=== PATIENT | female | born 1955 | race Native Hawaiian/Other Pacific Islander ===

== ENCOUNTER 2017-02-03 15:23 | Emergency (ER) | payer OTHER ==
[~2017-02-03] VITALS: Ht 157.5 cm; Wt 74.8 kg
[~2017-02-03 15:23] MED LIST: ACET5TAB36 PO; ADVAIR DISK2 IN; ALPR0.5T24 PO; ALTOPREV60 MG PO; BUDE1AER5 INH; CITALOPRAM20 MG OR; DALIRESP500 MC1 PO; FLUTICASONE50 MCG; FURO20TA67 PO; HYDR10TA47A PO; MONT10TA PO; ONDA4TAB3 PO; PHENTERMINE37.5 M1 PO; PROVENTIL IN; RANITIDINE150 M1 OR; SPIRIVA IN; ZANTAC 75 PO; ZOLPIDEM10 MG OR
[2017-02-03 16:10] VITALS: BP 129/85; TEMP 98.1
== END 2017-02-03 17:11 | disposition home or self-care (01) ==
LOC: ED 15:23
DX: M62.830 Muscle spasm of back (principal)
CPT/HCPCS: 99281

== ENCOUNTER 2017-04-27 14:32 | Outpatient (CLI) | payer OTHER | END 2017-04-27 15:35 | disposition home or self-care (01) | LOC: RAD 14:32 | DX: J44.1 Chronic obstructive pulmonary disease with (acute) exacerbation (principal) ==

== ENCOUNTER 2017-12-16 10:52 | Outpatient (CLI) | payer OTHER | END 2017-12-16 20:56 | disposition home or self-care (01) | LOC: RESP 10:52 | DX: R06.02 Shortness of breath (principal) | CPT/HCPCS: 94640; 94664 ==

== ENCOUNTER 2018-06-21 13:54 | Outpatient (CLI) | payer OTHER | END 2018-06-21 19:55 | disposition home or self-care (01) | LOC: MAMMO 13:54 | DX: R06.02 Shortness of breath (principal); Z12.31 Encounter for screening mammogram for malignant neoplasm of breast ==

== ENCOUNTER 2018-07-14 09:32 | Outpatient (CLI) | payer OTHER | END 2018-07-14 19:55 | disposition home or self-care (01) | LOC: CT 09:32 | DX: J44.9 Chronic obstructive pulmonary disease, unspecified (principal) | CPT/HCPCS: 36415; 82565; 84520; Q9963 ==

== ENCOUNTER 2018-11-22 14:53 | Outpatient (CLI) | payer OTHER | END 2018-11-22 21:04 | disposition home or self-care (01) | LOC: RAD 14:53 | DX: J44.1 Chronic obstructive pulmonary disease with (acute) exacerbation (principal) ==

== ENCOUNTER 2019-02-15 12:01 | Outpatient (CLI) | payer OTHER ==
[2019-02-15 12:49] LABS: PLATELET COUNT 444 K/uL (152-353)
[2019-02-15 12:54] LABS: POTASSIUM 3.4 mmol/L (3.6-5.2)
== END 2019-02-15 19:47 | disposition home or self-care (01) ==
LOC: RAD 12:01
PROVIDERS: Nurse Practitioner Family
DX: R05 Cough (principal)
CPT/HCPCS: 36415; 80053; 85027; 86738

== ENCOUNTER 2019-03-24 14:30 | Outpatient (CLI) | payer OTHER | END 2019-03-24 23:37 | disposition home or self-care (01) | LOC: CT 14:30 | DX: R91.1 Solitary pulmonary nodule (principal) ==

== ENCOUNTER 2019-06-17 13:53 | Outpatient (CLI) | payer OTHER | END 2019-06-17 21:31 | disposition home or self-care (01) | LOC: MRI 13:53 | DX: M25.511 Pain in right shoulder (principal) ==

== ENCOUNTER 2019-09-22 15:55 | Outpatient (CLI) | payer OTHER | END 2019-09-22 23:08 | disposition home or self-care (01) | LOC: RAD 15:55 | DX: R06.09 Other forms of dyspnea (principal) ==

== ENCOUNTER 2021-07-24 09:30 | Outpatient (CLI) | payer OTHER | END 2021-07-24 20:15 | disposition home or self-care (01) | LOC: RAD 09:30 | PROVIDERS: ATTEND Nurse Practitioner Primary Care | DX: J44.1 Chronic obstructive pulmonary disease with (acute) exacerbation (principal) ==

== ENCOUNTER 2021-09-06 12:48 | Outpatient (CLI) | payer OTHER | END 2021-09-06 23:04 | disposition home or self-care (01) | LOC: RAD 12:48 | PROVIDERS: ATTEND Nurse Practitioner Family | DX: J44.1 Chronic obstructive pulmonary disease with (acute) exacerbation (principal) ==

== ENCOUNTER 2021-09-12 17:13 | Observation (INO) | payer OTHER ==
[~2021-09-12] VITALS: Ht 157.5 cm; Wt 75.1 kg
[2021-09-12 18:25] VITALS: BP 114/57; TEMP 97.9; Ht 157.5 cm; Wt 75.1 kg
[2021-09-12 18:28] LABS: PLATELET COUNT 531 K/uL (152-353)
[2021-09-12 18:54] LABS: POTASSIUM 3.7 mmol/L (3.6-5.2)
[2021-09-12 20:00] VITALS: BP 121/56; TEMP 98.5
[2021-09-13] VITALS: BP 123/42; TEMP 98.5
[2021-09-13 04:00] VITALS: BP 118/61; TEMP 98.7
[2021-09-13 08:00] VITALS: BP 131/72; TEMP 98.8
[2021-09-13 12:00] VITALS: BP 143/71; TEMP 98.2
[2021-09-13] MEDS ORDERED: ASPIR-8181 MG PO (12:19)
[2021-09-13] MEDS ORDERED: PANTOPRAZOLE SO40 M2 PO (12:20)
[2021-09-13] MEDS ORDERED: CBD GUMMIES PO (12:21)
[2021-09-13 16:00] VITALS: BP 140/65; TEMP 98
[2021-09-13 20:00] VITALS: BP 157/71; TEMP 98.4
[2021-09-14 00:14] VITALS: BP 146/65; TEMP 98.4
[2021-09-14 04:17] VITALS: BP 88/68; TEMP 98.1
[2021-09-14 04:51] LABS: PLATELET COUNT 416 K/uL (152-353)
[2021-09-14 04:55] LABS: POTASSIUM 3.8 mmol/L (3.6-5.2)
[2021-09-14 08:14] VITALS: BP 126/59; TEMP 98.5
[2021-09-14 12:00] VITALS: BP 155/75; TEMP 97.7
[2021-09-14 16:00] VITALS: BP 145/75; TEMP 97.6
[2021-09-14 20:00] VITALS: BP 151/60; TEMP 98.1
[2021-09-15 00:28] VITALS: BP 133/61; TEMP 98.4
[2021-09-15 04:00] VITALS: BP 131/54; TEMP 98.4
[2021-09-15 05:29] LABS: PLATELET COUNT 421 K/uL (152-353)
[2021-09-15 05:36] LABS: POTASSIUM 4.2 mmol/L (3.6-5.2)
[2021-09-15 08:00] VITALS: BP 132/69; TEMP 98.2
[2021-09-15 12:17] VITALS: BP 119/65; TEMP 98
== END 2021-09-15 14:51 | disposition home or self-care (01) ==
LOC: MED/SURG 17:13
PROVIDERS: ADMIT Family Medicine; ATTEND Family Medicine
DX: U07.1 COVID-19 (principal); J12.82 Pneumonia due to coronavirus disease 2019; J44.0 Chronic obstructive pulmonary disease with (acute) lower respiratory infection; J18.8 Other pneumonia, unspecified organism; J44.1 Chronic obstructive pulmonary disease with (acute) exacerbation; R06.09 Other forms of dyspnea; K21.9 Gastro-esophageal reflux disease without esophagitis; R91.1 Solitary pulmonary nodule; I10 Essential (primary) hypertension; G89.29 Other chronic pain; Z68.26 Body mass index [BMI] 26.0-26.9, adult; E66.8 Other obesity; D50.8 Other iron deficiency anemias
CPT/HCPCS: 36415; 80053; 82550; 82607; 82728; 83540; 83550; 83735; 84100; 84484; 85008; 85027; 85379; 86140; 87040; 87077; 87185; 87186; 87205; 87635; 93005; 94640; 94664; 94760; 99220; G0378; G0379; J0248; J0456; J0696; J2060; J2405; J2930; Q9963; U0003

== ENCOUNTER 2021-10-29 14:48 | Outpatient (CLI) | payer OTHER ==
[~2021-10-29 14:48] MED LIST changes: +ASPIR-8181 MG PO; +CBD GUMMIES PO; +PANTOPRAZOLE SO40 M2 PO
== END 2021-10-29 19:06 | disposition home or self-care (01) ==
LOC: CT 14:48
PROVIDERS: ATTEND Nurse Practitioner Family
DX: R10.32 Left lower quadrant pain (principal)
CPT/HCPCS: 36415; 82565; 84520; Q9963

== ENCOUNTER 2021-11-15 14:56 | Outpatient (CLI) | payer OTHER ==
[~2021-11-15] VITALS: Ht 157.5 cm; Wt 67.1 kg
[2021-11-15 14:25] VITALS: BP 91/55; TEMP 98.3
[2021-11-15 15:15] VITALS: BP 119/56; TEMP 98.4
== END 2021-11-15 19:40 | disposition home or self-care (01) ==
LOC: INF 14:56
PROVIDERS: ATTEND Family Medicine
DX: D50.9 Iron deficiency anemia, unspecified (principal)
CPT/HCPCS: 96365; J1756

== ENCOUNTER 2022-01-01 15:20 | Outpatient (CLI) | payer OTHER | END 2022-01-01 21:43 | disposition home or self-care (01) | LOC: RAD 15:20 | PROVIDERS: ATTEND Nurse Practitioner Family | DX: M79.671 Pain in right foot (principal) ==

== ENCOUNTER 2022-01-13 12:47 | Outpatient (CLI) | payer OTHER ==
[~2022-01-13] VITALS: Ht 157.5 cm; Wt 67.1 kg
[2022-01-13 13:04] VITALS: BP 122/64; TEMP 98.6
[2022-01-13 16:25] VITALS: BP 133/61; TEMP 98.4
== END 2022-01-13 18:54 | disposition home or self-care (01) ==
LOC: INF 12:47
PROVIDERS: ATTEND Family Medicine
DX: E86.0 Dehydration (principal)
CPT/HCPCS: 96360; 96361

== ENCOUNTER 2022-02-12 11:09 | Outpatient (CLI) | payer OTHER ==
[2022-02-12 18:08] LABS: PLATELET COUNT 314 K/uL (152-353)
[2022-02-12 18:20] LABS: POTASSIUM 3.7 mmol/L (3.6-5.2)
== END 2022-02-12 19:12 | disposition home or self-care (01) ==
LOC: RAD 11:09
PROVIDERS: ATTEND Nurse Practitioner Family
DX: M25.512 Pain in left shoulder (principal); J44.1 Chronic obstructive pulmonary disease with (acute) exacerbation
CPT/HCPCS: 36415; 80053; 82550; 82553; 84484; 85008; 85027; 93005

== ENCOUNTER 2022-02-23 10:02 | Emergency (ER) | payer OTHER ==
[~2022-02-23] VITALS: Ht 157.5 cm; Wt 55.8 kg
[2022-02-23 10:08] VITALS: BP 122/67; TEMP 97.9
[2022-02-23 10:36] LABS: PLATELET COUNT 332 K/uL (152-353)
[2022-02-23 10:42] LABS: POTASSIUM 3.5 mmol/L (3.6-5.2)
== END 2022-02-23 12:21 | disposition home or self-care (01) ==
LOC: ED 10:02
PROVIDERS: Hospitalist
DX: R06.4 Hyperventilation (principal); E86.0 Dehydration; E87.6 Hypokalemia
CPT/HCPCS: 80048; 80320; 83735; 85027; 93005; 96360; 96374; 96375; 99284; J1200; J2930

== ENCOUNTER 2022-02-25 14:58 | Outpatient (CLI) | payer OTHER ==
[2022-02-25 15:18] LABS: POTASSIUM 4.3 mmol/L (3.6-5.2)
== END 2022-02-25 20:39 | disposition home or self-care (01) ==
LOC: LAB 14:58
PROVIDERS: ATTEND Family Medicine
DX: E87.6 Hypokalemia (principal)
CPT/HCPCS: 80053

== ENCOUNTER 2022-03-08 18:05 | Emergency (ER) | payer OTHER ==
[~2022-03-08] VITALS: Ht 157.5 cm; Wt 55.8 kg
[2022-03-08 18:43] LABS: POTASSIUM 4.2 mmol/L (3.6-5.2)
[2022-03-08 18:55] LABS: PLATELET COUNT 258 K/uL (152-353)
[2022-03-08 19:38] VITALS: BP 132/65; TEMP 98.8
== END 2022-03-08 19:38 | disposition home or self-care (01) ==
LOC: ED 18:05
PROVIDERS: Emergency Medicine
DX: R53.81 Other malaise (principal); C22.9 Malignant neoplasm of liver, not specified as primary or secondary; Z92.21 Personal history of antineoplastic chemotherapy
CPT/HCPCS: 36415; 80053; 81002; 81015; 84484; 85027; 93005; 96365; 99284

== ENCOUNTER 2022-05-10 19:48 | Emergency (ER) | payer OTHER ==
[~2022-05-10] VITALS: Ht 157.5 cm; Wt 47.6 kg
[2022-05-10 20:00] VITALS: TEMP 98.1
[2022-05-10 21:37] LABS: PLATELET COUNT 249 K/uL (152-353)
[2022-05-10 21:47] LABS: POTASSIUM 4.3 mmol/L (3.6-5.2)
[2022-05-11 02:30] VITALS: BP 148/76
== END 2022-05-11 02:30 | disposition home or self-care (01) ==
LOC: ED 19:48
PROVIDERS: Family Medicine
DX: R51.9 Headache, unspecified (principal); I10 Essential (primary) hypertension; R06.09 Other forms of dyspnea; F17.210 Nicotine dependence, cigarettes, uncomplicated
CPT/HCPCS: 80053; 85008; 85027; 96372; 99283; J1885

== ENCOUNTER 2022-06-07 12:47 | Emergency (ER) | payer OTHER ==
[~2022-06-07] VITALS: Ht 157.5 cm; Wt 49.4 kg
[2022-06-07 13:00] VITALS: TEMP 98.1
[2022-06-07 14:00] LABS: PLATELET COUNT 341 K/uL (152-353)
[2022-06-07 14:05] LABS: POTASSIUM 3.4 mmol/L (3.6-5.2)
[2022-06-07 14:19] LABS: PARTIAL THROMBOPLASTIN TIME 29.3 SECONDS (24.5-33.6)
[2022-06-07 14:45] VITALS: BP 109/62
== END 2022-06-07 14:45 | disposition home or self-care (01) ==
LOC: ED 12:47
PROVIDERS: Emergency Medicine
DX: R04.2 Hemoptysis (principal); C22.8 Malignant neoplasm of liver, primary, unspecified as to type; C78.00 Secondary malignant neoplasm of unspecified lung; C78.5 Secondary malignant neoplasm of large intestine and rectum
CPT/HCPCS: 80053; 85027; 85610; 85730; 96372; 99283; J0696

== ENCOUNTER 2022-07-25 10:45 | Inpatient (IN) | payer OTHER ==
[2022-07-25] VITALS (10 sets, daily range): BP systolic 105–130; BP diastolic 49–71; TEMP 97.6–98.4; Ht 157.5 cm; Wt 47.0 kg
[~2022-07-25] VITALS: Ht 157.5 cm; Wt 47.0 kg
[2022-07-25 11:20] LABS: PLATELET COUNT 414 K/uL (152-353)
[2022-07-25 11:45] LABS: POTASSIUM 4.2 mmol/L (3.6-5.2)
[2022-07-25] MEDS ORDERED: FLUC200T PO (17:16)
[2022-07-25] MEDS ORDERED: NOHIST-DM PO (17:20)
[2022-07-25] MEDS ORDERED: MIRTAZAPINE7.5 MG PO (17:21)
[2022-07-25] MEDS ORDERED: MORPHINE PO (17:24)
[2022-07-25] MEDS ORDERED: CEPHALEXIN500 MG PO (17:26)
[2022-07-25] MEDS ORDERED: BEVESPI AEROSPH1 AER (17:29)
[2022-07-25] MEDS ORDERED: PERCOCET1 TA3 PO (17:29)
[2022-07-25] MEDS ORDERED: LORA0.5T17 PO (17:30)
[2022-07-25] MEDS ORDERED: DALIRESP500 MC1 PO (17:30)
[2022-07-25] MEDS ORDERED: MEGESTROL625 MG/5 M PO (17:32)
[2022-07-25] MEDS ORDERED: ONDANSETRON HYDR8 MG PO (17:35)
[2022-07-25] MEDS ORDERED: TRELEGY ELLIPTA1 AER INH (17:36)
[2022-07-25] MEDS ORDERED: CYPROHEPTADINE H4 MG PO (17:37)
[2022-07-25] MEDS ORDERED: ALLERGY NA50 MCG/ACT NAS (17:37)
[2022-07-25] MEDS ORDERED: ALBUTEROL0.083 % INH (17:38)
[2022-07-25] MEDS ORDERED: LIPITOR40 MG PO (17:39)
[2022-07-25] MEDS ORDERED: TRAZODONE HYDR150 MG PO (17:39)
[2022-07-25] MEDS ORDERED: OMEPRAZOLE DR40 MG PO (17:40)
[2022-07-25] MEDS ORDERED: ALBUTEROL108 MCG/AC INH (17:55)
[2022-07-25] MEDS ORDERED: SENNA LAX8.6 MG PO (18:00)
[2022-07-26 03:49] VITALS: BP 111/59; TEMP 97.5
[2022-07-26 05:15] LABS: PLATELET COUNT 324 K/uL (152-353)
[2022-07-26 05:25] LABS: POTASSIUM 4.1 mmol/L (3.6-5.2)
[2022-07-26 08:06] VITALS: BP 110/59; TEMP 98.4
[2022-07-26 12:00] VITALS: BP 119/59; TEMP 98.1
[2022-07-26 16:00] VITALS: BP 106/53; TEMP 98
[2022-07-26 20:00] VITALS: BP 104/50; TEMP 98.3
[2022-07-27] VITALS (7 sets, daily range): BP systolic 104–132; BP diastolic 49–63; TEMP 97.7–99
[2022-07-28 03:53] VITALS: BP 119/62; TEMP 98.6
[2022-07-28 05:40] LABS: POTASSIUM 3.1 mmol/L (3.6-5.2)
[2022-07-28 05:45] LABS: PLATELET COUNT 293 K/uL (152-353)
[2022-07-28 08:00] VITALS: BP 130/70; TEMP 98.3
[2022-07-28 12:00] VITALS: BP 117/60; TEMP 98.2
[2022-07-28 16:00] VITALS: BP 112/52; TEMP 98.4
[2022-07-28 20:00] VITALS: BP 119/60; BP 98/52; TEMP 98.9
[2022-07-29 00:05] VITALS: BP 123/54; TEMP 98.7
[2022-07-29 04:00] VITALS: BP 113/55; TEMP 98.8
[2022-07-29 08:00] VITALS: BP 120/66; TEMP 98.4
[2022-07-29] MEDS ORDERED: DECADRON6 MG PO (08:57)
[2022-07-29] MEDS ORDERED: CEFD300C2 PO (08:57)
[2022-07-29] MEDS ORDERED: METO-837 PO (08:59)
== END 2022-07-29 10:24 | disposition home or self-care (01) | DRG 189 ==
LOC: ED 10:45 → MED/SURG 12:34
PROVIDERS: Internal Medicine; ADMIT Internal Medicine; ATTEND Internal Medicine
DX: J96.21 Acute and chronic respiratory failure with hypoxia (principal); J44.1 Chronic obstructive pulmonary disease with (acute) exacerbation; C34.90 Malignant neoplasm of unspecified part of unspecified bronchus or lung; D84.821 Immunodeficiency due to drugs; Z68.1 Body mass index [BMI] 19.9 or less, adult; R00.0 Tachycardia, unspecified; Z99.81 Dependence on supplemental oxygen; Z87.891 Personal history of nicotine dependence; R62.7 Adult failure to thrive; R63.4 Abnormal weight loss
CPT/HCPCS: 36415; 36600; 80053; 82805; 85027; 87635; 93005; 94664; 94760; 96360; 96361; 96365; 96367; 96372; 96374; 96375; 96376; 99284; J0456; J0692; J1650; J1940; J2270; J2930; J3490; U0003

== ENCOUNTER 2022-08-18 12:15 | Emergency (ER) | payer OTHER ==
[~2022-08-18 12:15] MED LIST changes: +ALBUTEROL0.083 % INH; +ALBUTEROL108 MCG/AC INH; +ALLERGY NA50 MCG/ACT NAS; +BEVESPI AEROSPH1 AER; +CEFD300C2 PO; +CEPHALEXIN500 MG PO; +CYPROHEPTADINE H4 MG PO; +DECADRON6 MG PO; +FLUC200T PO; +LIPITOR40 MG PO; +LORA0.5T17 PO; +MEGESTROL625 MG/5 M PO; +METO-837 PO; +MIRTAZAPINE7.5 MG PO; +MORPHINE PO; +NOHIST-DM PO; +OMEPRAZOLE DR40 MG PO; +ONDANSETRON HYDR8 MG PO; +PERCOCET1 TA3 PO; +SENNA LAX8.6 MG PO; +TRAZODONE HYDR150 MG PO; +TRELEGY ELLIPTA1 AER INH
[2022-08-18 15:27] LABS: POTASSIUM 4.2 mmol/L (3.6-5.2)
[2022-08-18 15:29] LABS: PLATELET COUNT 308 K/uL (152-353)
[2022-08-18 16:20] LABS: PARTIAL THROMBOPLASTIN TIME 31.9 SECONDS (24.5-33.6)
== END 2022-08-18 18:00 | disposition home or self-care (01) ==
LOC: ED 12:15
PROVIDERS: Emergency Medicine Emergency Medical Services
DX: E86.0 Dehydration (principal); J44.9 Chronic obstructive pulmonary disease, unspecified; Z20.822 Contact with and (suspected) exposure to COVID-19; Z79.899 Other long term (current) drug therapy; Z51.81 Encounter for therapeutic drug level monitoring
CPT/HCPCS: 36415; 36600; 80053; 81000; 82805; 83735; 84484; 85027; 85610; 85730; 87040; 87502; 87635; 93005; 94664; 96360; 96361; 96365; 96366; 99284; J1956; U0003

== ENCOUNTER 2022-09-09 14:54 | Outpatient (CLI) | payer OTHER | END 2022-09-09 20:39 | disposition home or self-care (01) | LOC: RAD 14:54 | PROVIDERS: ATTEND Nurse Practitioner Family | DX: M54.17 Radiculopathy, lumbosacral region (principal) ==

== ENCOUNTER 2022-12-16 15:39 | Outpatient (CLI) | payer OTHER ==
[~2022-12-16] VITALS: Ht 157.5 cm; Wt 49.4 kg
[2022-12-16 16:07] LABS: POTASSIUM 3.9 mmol/L (3.6-5.2)
[2022-12-16 16:13] VITALS: BP 126/79; TEMP 97.8
[2022-12-16 16:55] VITALS: BP 127/67; TEMP 98.1
[2022-12-16 17:18] VITALS: BP 120/74; TEMP 97.7
== END 2022-12-16 22:46 | disposition home or self-care (01) ==
LOC: INF 15:39
PROVIDERS: ATTEND Family Medicine
DX: S20.211A Contusion of right front wall of thorax, initial encounter (principal); Y92.89 Other specified places as the place of occurrence of the external cause
CPT/HCPCS: 36415; 80048; 96365; J1335

== ENCOUNTER 2022-12-17 14:31 | Outpatient (CLI) | payer OTHER ==
[~2022-12-17] VITALS: Ht 162.6 cm; Wt 78.5 kg
== END 2022-12-17 19:37 ==
LOC: INF 14:31
PROVIDERS: ATTEND Family Medicine
DX: N30.01 Acute cystitis with hematuria (principal)
CPT/HCPCS: 96365; J1335

== ENCOUNTER 2022-12-18 14:17 | Outpatient (CLI) | payer OTHER ==
[~2022-12-18] VITALS: Ht 157.5 cm; Wt 49.4 kg
[2022-12-18 14:25] VITALS: BP 126/65; TEMP 98.1
[2022-12-18 15:33] VITALS: BP 128/64; TEMP 98.2
== END 2022-12-18 17:30 | disposition home or self-care (01) ==
LOC: INF 14:17
PROVIDERS: ATTEND Family Medicine
DX: N30.01 Acute cystitis with hematuria (principal)
CPT/HCPCS: 96360; 96361; 96365; J1335

== ENCOUNTER 2022-12-19 14:57 | Outpatient (CLI) | payer OTHER ==
[~2022-12-19] VITALS: Ht 154.9 cm; Wt 49.0 kg
[2022-12-19 15:02] VITALS: BP 130/65; TEMP 98.3
== END 2022-12-19 19:18 | disposition home or self-care (01) ==
LOC: INF 14:57
PROVIDERS: ATTEND Family Medicine
DX: N30.01 Acute cystitis with hematuria (principal)
CPT/HCPCS: 96365; J1335

== ENCOUNTER 2023-01-08 10:39 | Outpatient (CLI) | payer OTHER | END 2023-01-08 17:00 | disposition home or self-care (01) | LOC: RAD 10:39 | PROVIDERS: ATTEND Nurse Practitioner Family | DX: K59.09 Other constipation (principal) ==

== ENCOUNTER 2023-02-09 13:55 | Outpatient (CLI) | payer OTHER ==
[2023-02-09 14:14] LABS: POTASSIUM 3.6 mmol/L (3.6-5.2)
[2023-02-09 14:18] LABS: PLATELET COUNT 298 K/uL (152-353)
== END 2023-02-09 20:10 | disposition home or self-care (01) ==
LOC: LABW 13:55
PROVIDERS: ATTEND Nurse Practitioner Family
DX: J44.1 Chronic obstructive pulmonary disease with (acute) exacerbation (principal); N30.00 Acute cystitis without hematuria
CPT/HCPCS: 36415; 80048; 85027

== ENCOUNTER 2023-04-20 11:20 | Inpatient (IN) | payer OTHER ==
[~2023-04-20] VITALS: Ht 157.5 cm; Wt 51.5 kg
[~2023-04-20 11:20] MED LIST changes: +BEVESPI AEROSPH1 AER INH; +IPRATROPIUM BRO1 POW INH; +MAGICMOUTH PO; -MIRTAZAPINE7.5 MG PO; +ONDANSETRON 4MG ODT PO; +PANTOPRAZOLE 40MG TA PO; +REMERON SOLTAB15 MG PO; +TETRACYCLINE500 MG PO
[2023-04-20 13:56] LABS: PLATELET COUNT 386 K/uL (152-353)
[2023-04-20] MEDS ORDERED: GENERLAC10 GM/15 M PO (14:38)
[2023-04-20] MEDS ORDERED: LIPITOR40 MG PO (14:40)
[2023-04-20 16:00] VITALS: BP 117/55; BP 134/66; TEMP 98.4; TEMP 98.7; Ht 157.5 cm; Wt 51.5 kg
[2023-04-20 20:00] VITALS: BP 114/51; TEMP 99.1
[2023-04-20 23:33] VITALS: BP 110/55; TEMP 98
[2023-04-21 03:54] VITALS: BP 111/47; TEMP 98.5
[2023-04-21 07:53] LABS: PLATELET COUNT 301 K/uL (152-353)
[2023-04-21 08:00] VITALS: BP 119/65; TEMP 98.2
[2023-04-21 08:01] LABS: POTASSIUM 3.1 mmol/L (3.6-5.2)
[2023-04-21 12:43] VITALS: BP 124/53; TEMP 98
[2023-04-21 16:00] VITALS: BP 105/56; TEMP 98.4
[2023-04-21 19:46] VITALS: BP 116/58; TEMP 97.9
[2023-04-21 23:33] VITALS: BP 109/45; TEMP 98.2
[2023-04-22 03:42] VITALS: BP 119/56; TEMP 97.9
[2023-04-22 08:00] VITALS: BP 118/76; TEMP 98.1
[2023-04-22 12:00] VITALS: BP 124/60; TEMP 98
[2023-04-22 16:00] VITALS: BP 132/62; TEMP 98.1
[2023-04-22 20:00] VITALS: BP 137/64; TEMP 98.4
[2023-04-23] VITALS: BP 109/67; TEMP 98.3
[2023-04-23 04:00] VITALS: BP 111/51; TEMP 97.7
[2023-04-23 08:00] VITALS: BP 115/54; TEMP 98.3
[2023-04-23 08:09] LABS: POTASSIUM 3.7 mmol/L (3.6-5.2)
[2023-04-23 08:16] LABS: PLATELET COUNT 278 K/uL (152-353)
[2023-04-23 12:00] VITALS: BP 110/49; TEMP 98
[2023-04-23 16:00] VITALS: BP 118/59; TEMP 98.6
[2023-04-23 20:00] VITALS: BP 124/56; TEMP 98
[2023-04-24] VITALS: BP 109/45; TEMP 98
[2023-04-24 04:00] VITALS: BP 112/47; TEMP 98
[2023-04-24 07:07] LABS: PLATELET COUNT 276 K/uL (152-353)
[2023-04-24 07:16] LABS: POTASSIUM 3.4 mmol/L (3.6-5.2)
[2023-04-24 08:00] VITALS: BP 125/54; TEMP 97.9
[2023-04-24 12:00] VITALS: BP 131/60; TEMP 98.1
[2023-04-24 16:00] VITALS: BP 131/61; TEMP 98.6
[2023-04-24 20:06] VITALS: BP 115/47; TEMP 98.8
[2023-04-25 00:22] VITALS: BP 120/48; TEMP 99.1
[2023-04-25 04:16] VITALS: BP 106/56; TEMP 98.7
[2023-04-25 07:41] LABS: PLATELET COUNT 312 K/uL (152-353)
[2023-04-25 07:59] LABS: POTASSIUM 3.3 mmol/L (3.6-5.2)
[2023-04-25 08:22] VITALS: BP 118/57; TEMP 98.2
[2023-04-25 12:06] VITALS: BP 114/55; TEMP 98.1
[2023-04-25 16:00] VITALS: BP 114/56; TEMP 98.7
[2023-04-25 20:27] VITALS: BP 120/54; TEMP 98.5
[2023-04-26] VITALS (7 sets, daily range): BP systolic 106–126; BP diastolic 48–57; TEMP 97.7–99
[2023-04-26 05:41] LABS: PLATELET COUNT 347 K/uL (152-353)
[2023-04-26 05:47] LABS: POTASSIUM 3.9 mmol/L (3.6-5.2)
[2023-04-27 03:33] VITALS: BP 112/60; TEMP 98.6
[2023-04-27 05:35] LABS: POTASSIUM 4.4 mmol/L (3.6-5.2)
[2023-04-27 06:27] LABS: PLATELET COUNT 390 K/uL (152-353)
[2023-04-27 07:58] VITALS: BP 126/69; TEMP 98.5
[2023-04-27] MEDS ORDERED: MAGN400T4 PO (09:15)
[2023-04-27] MEDS ORDERED: EQL IRON SUPPL325 M1 PO (09:25)
[2023-04-27 12:00] VITALS: BP 109/56; TEMP 99
== END 2023-04-27 13:55 | disposition home or self-care (01) | DRG 690 ==
LOC: MED/SURG 11:20
PROVIDERS: Internal Medicine; ADMIT Internal Medicine Endocrinology, Diabetes & Metabolism; ATTEND Internal Medicine Endocrinology, Diabetes & Metabolism
DX: N30.01 Acute cystitis with hematuria (principal); R78.81 Bacteremia; C78.00 Secondary malignant neoplasm of unspecified lung; Z16.24 Resistance to multiple antibiotics; J96.10 Chronic respiratory failure, unspecified whether with hypoxia or hypercapnia; R64 Cachexia; E46 Unspecified protein-calorie malnutrition; Z68.1 Body mass index [BMI] 19.9 or less, adult; E87.6 Hypokalemia; E83.42 Hypomagnesemia; C80.1 Malignant (primary) neoplasm, unspecified; B96.29 Other Escherichia coli [E. coli] as the cause of diseases classified elsewhere; Z99.81 Dependence on supplemental oxygen; J44.9 Chronic obstructive pulmonary disease, unspecified; K21.9 Gastro-esophageal reflux disease without esophagitis; G89.4 Chronic pain syndrome; F32.A Depression, unspecified; G47.00 Insomnia, unspecified; D50.8 Other iron deficiency anemias; R53.1 Weakness; R26.81 Unsteadiness on feet; Z72.0 Tobacco use
CPT/HCPCS: 36415; 80048; 80053; 81000; 82607; 82728; 82746; 83540; 83735; 85027; 87040; 87077; 87086; 87088; 87186; 87205; 94664; 94760; 96361; 96365; 96375; J1335; J1650; J2270; J2405; J2916; J3475

== ENCOUNTER 2023-04-28 14:15 | Outpatient (CLI) | payer OTHER ==
[~2023-04-28] VITALS: Ht 157.5 cm; Wt 51.3 kg
[~2023-04-28 14:15] MED LIST changes: +EQL IRON SUPPL325 M1 PO; +GENERLAC10 GM/15 M PO; +MAGN400T4 PO
[2023-04-28 14:20] VITALS: BP 115/60; TEMP 98.3
== END 2023-04-28 19:06 | disposition home or self-care (01) ==
LOC: INF 14:15
PROVIDERS: ATTEND Family Medicine
DX: N39.0 Urinary tract infection, site not specified (principal); R78.81 Bacteremia
CPT/HCPCS: 96365; J1335

== ENCOUNTER 2023-04-30 13:51 | Outpatient (CLI) | payer OTHER ==
[~2023-04-30] VITALS: Ht 165.1 cm; Wt 68.0 kg
[2023-04-30 13:55] VITALS: BP 103/65; TEMP 98.4
== END 2023-04-30 23:57 | disposition home or self-care (01) ==
LOC: INF 13:51
PROVIDERS: ATTEND Family Medicine
DX: N39.0 Urinary tract infection, site not specified (principal); R78.81 Bacteremia
CPT/HCPCS: 96365; J1335

== ENCOUNTER 2023-05-01 14:05 | Outpatient (CLI) | payer OTHER ==
[~2023-05-01] VITALS: Ht 165.1 cm; Wt 56.7 kg
[2023-05-01 14:10] VITALS: BP 118/73; TEMP 98.7
== END 2023-05-01 20:45 | disposition home or self-care (01) ==
LOC: INF 14:05
PROVIDERS: ATTEND Family Medicine
DX: N39.0 Urinary tract infection, site not specified (principal); R78.81 Bacteremia
CPT/HCPCS: 96365; J1335

== ENCOUNTER 2023-05-02 16:07 | Outpatient (CLI) | payer OTHER ==
[2023-05-02 15:35] VITALS: BP 104/56; TEMP 98.4
== END 2023-05-02 23:55 | disposition home or self-care (01) ==
LOC: INF 16:07
PROVIDERS: ATTEND Family Medicine
DX: N39.0 Urinary tract infection, site not specified (principal); R78.81 Bacteremia
CPT/HCPCS: 96365

== ENCOUNTER 2023-05-03 14:28 | Outpatient (CLI) | payer OTHER ==
[2023-05-03 14:45] VITALS: BP 103/60; TEMP 98
[2023-05-03 15:34] VITALS: BP 101/62; TEMP 97.6
== END 2023-05-03 23:02 | disposition home or self-care (01) ==
LOC: INF 14:28
PROVIDERS: ATTEND Family Medicine
DX: N39.0 Urinary tract infection, site not specified (principal); R78.81 Bacteremia
CPT/HCPCS: 96365

== ENCOUNTER 2023-05-04 14:48 | Outpatient (CLI) | payer OTHER ==
[2023-05-04 14:52] VITALS: BP 104/54; TEMP 98.5
== END 2023-05-04 23:57 | disposition home or self-care (01) ==
LOC: INF 14:48
PROVIDERS: ATTEND Internal Medicine Endocrinology, Diabetes & Metabolism
DX: N39.0 Urinary tract infection, site not specified (principal); R78.81 Bacteremia
CPT/HCPCS: 96365